=== PATIENT | male | born 1980 | race Caucasian/White ===

== ENCOUNTER 2016-07-30 21:00 | Emergency (ER) | payer OTHER ==
[2016-07-30 21:14] VITALS: BP 177/99; PULSE 62; TEMP 98.4; BMI 44.6
--- NOTE | 2016-07-30 21:33 | PDOC ---
History of Present Illness - General Chief Complaint: Laceration Stated Complaint: BITE TONGUE/EXCESSIVE BLEEDING Time Seen by Provider: 07/30/16 21:24 History Source: Patient Exam Limitations: No Limitations - History of Present Illness Initial Comments: CHIEF COMPLAINT: 36 y/o male, on Xarelto, c/o bleeding tongue. HISTORY OF PRESENT ILLNESS: The patient accidentally bit his tongue about 9 hours ago and has been bleeding ever since. Vital signs on arrival are notable for BP of 177/99. REVIEW OF SYSTEMS: GENERAL/CONSTITUTIONAL: No fever/chills. No weakness. No weight change. HEAD, EYES, EARS, NOSE AND THROAT: No change in vision. No ear pain or discharge. No sore throat. +bleeding tongue CARDIOVASCULAR: No chest pain or shortness of breath. GENITOURINARY: No dysuria, frequency, or change in urination. MUSCULOSKELETAL: No joint or muscle swelling or pain. No neck or back pain. PHYSICAL EXAM: GENERAL: The patient is awake, alert, and fully oriented, in no acute distress. HEAD: Normal with no signs of trauma. EYES: Pupils equal, round and reactive to light, extraocular movements intact, sclera anicteric, conjunctiva clear. MOUTH: pinhole puncture to middle of tongue with active bleeding. EXTREMITIES: Normal range of motion, no edema. NEUROLOGICAL: Normal speech, normal gait. PSYCH: Normal mood, normal affect. SKIN: Warm, Dry, normal turgor, no rashes or lesions noted. Past History - Past Medical History Allergies/Adverse Reactions: Allergies Allergy/AdvReac Type Severity Reaction Status Date / Time No Known Allergies Allergy Verified 07/30/16 21:10 Home Medications: Ambulatory Orders Carvedilol 25 mg PO ASDIR 07/30/16 Diltiazem HCl [Diltiazem ER] 120 mg PO ASDIR 07/30/16 Furosemide [Lasix -] 40 mg PO DAILY 07/30/16 Rivaroxaban [Xarelto -] 20 mg PO DAILY 07/30/16 Cancer: Yes (a-fib, osteogenisis imperfecta) CHF: Yes GI Disorders: Yes (OBESITY.) HTN: Yes - Immunization History Immunization Up to Date: Yes - Psycho/Social/Smoking Cessation Hx Anxiety: No Suicidal Ideation: No Smoking History: Never smoked Information on smoking cessation initiated: No Hx Alcohol Use: Yes Drug/Substance Use Hx: No Substance Use Type: Alcohol *Physical Exam - Vital Signs Last Vital Signs Temp Pulse Resp BP Pulse Ox 98.4 F 62 20 177/99 100 07/30/16 21:10 07/30/16 21:10 07/30/16 21:10 07/30/16 21:10 07/30/16 21:10 Medical Decision Making - Medical Decision Making A/P: 36 y/o male with bleeding tongue. He is on xarelto. 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 The puncture wound sustained on your tongue was from you biting on it earlier today The reason Bleeding is because you are on a blood thinner The bleeding has subsided 100% at this time Follow-up with your physician as needed Return back to the emergency department for any recurrence
--- NOTE | 2016-07-31 00:08 | PDOC ---
*Physical Exam - Vital Signs Last Vital Signs Temp Pulse Resp BP Pulse Ox 98.4 F 62 20 177/99 100 07/30/16 21:10 07/30/16 21:10 07/30/16 21:10 07/30/16 21:10 07/30/16 21:10 Progress Note - Progress Note Progress Note: Pinpoint puncture notice on patient's mid tongue area from biting down while eating earlier today. Blood was oozing through the puncture wound all day today. Patient is on a blood thinner Procedure: Surgicel applied directly on the puncture wound with direct pressure for 30 minutes Bleeding subsided 100% Patient wishes to be discharged Patient was advised to return back to the emergency department for any recurrence *DC/Admit/Observation/Transfer Diagnosis at time of Disposition: Puncture wound - Discharge Dispostion Disposition: HOME Condition at time of disposition: Improved - Referrals Referrals: Renee Gomez MD [Primary Care Provider] - - Patient Instructions Additional Instructions: Avoid biting or touching your tongue for the next 2 days. The puncture wound sustained on your tongue was from you biting on it earlier today The reason Bleeding is because you are on a blood thinner The bleeding has subsided 100% at this time Follow-up with your physician as needed Return back to the emergency department for any recurrence
== END 2016-07-31 00:11 | disposition home or self-care (01) ==
LOC: JERFT 21:00
PROC: 0CQ7XZZ Repair Tongue, External Approach (ICD-10-PCS; principal; 2016-07-30)
DX: S01.532A Puncture wound without foreign body of oral cavity, initial encounter (principal); Y33.XXXA Other specified events, undetermined intent, initial encounter; Y93.89 Activity, other specified; Y92.018 Other place in single-family (private) house as the place of occurrence of the external cause; I48.91 Unspecified atrial fibrillation; Z79.01 Long term (current) use of anticoagulants
CPT/HCPCS: 41250; 99281-25